=== PATIENT | female | born 2005 | race Caucasian/White ===

== ENCOUNTER 2024-05-01 17:58 | Emergency (ER) | payer SELFPAY ==
[~2024-05-01] VITALS: Ht 157.4 cm; Wt 53.2 kg
== END 2024-05-01 18:38 | disposition home or self-care (01) ==
LOC: ED 17:58
DX: O20.9 Hemorrhage in early pregnancy, unspecified (principal); O26.891 Other specified pregnancy related conditions, first trimester; Z3A.01 Less than 8 weeks gestation of pregnancy

== ENCOUNTER 2024-07-30 20:02 | Emergency (ER) | payer SELFPAY ==
[~2024-07-30] VITALS: Ht 157.4 cm; Wt 53.1 kg
[2024-07-30] MEDS ORDERED: Tdap Vaccine 0.5 ML SYR (Adult Vaccine) IM ONE (20:20)
[2024-07-30] MEDS ORDERED: ceFAZolin sodium/sodium chlor 10 ML IV ONE (20:20)
[2024-07-30] MEDS ORDERED: SODIUM CHLORIDE 0.9% 1,000 ML IV ONE (20:20)
[2024-07-30] MEDS ORDERED: Bacitracin Zinc 14 GM TUBE T ONE (20:30)
[2024-07-30] MEDS ORDERED: Lidocaine Hydrochloride 2% 10 ML AMP SC ONE (20:30)
[2024-07-30] MEDS ORDERED: CEPHALEXIN500 M1 PO (21:37)
== END 2024-07-30 22:40 | disposition home or self-care (01) ==
LOC: ED 20:02
DX: S51.812A Laceration without foreign body of left forearm, initial encounter (principal); S60.512A Abrasion of left hand, initial encounter; W22.09XA Striking against other stationary object, initial encounter; Y93.89 Activity, other specified; Y92.89 Other specified places as the place of occurrence of the external cause; Y99.8 Other external cause status